=== PATIENT | female | born 1995 | race African-American/Black ===

== ENCOUNTER 2020-03-13 17:05 | Observation (INO) | payer MEDICAID ==
[~2020-03-13] VITALS: Ht 167.6 cm; Wt 111.6 kg
[2020-03-13 18:43] LABS: CLARITY URINE CLOUDY (CLEAR); COLOR URINE YELLOW (YELLOW); KETONES URINE 3+ (NEGATIVE); LEUKOCYTE ESTERASE URINE NEGATIVE (NEGATIVE); NITRITE URINE POSITIVE (NEGATIVE); OCCULT BLOOD URINE NEGATIVE (NEGATIVE); PH URINE 5.5 (4.5-8.0); PROTEIN URINE 2+ (NEGATIVE); SPECIFIC GRAVITY URINE 1.039 (1.005-1.030); UROBILINOGEN URINE 0.2 E.U./dL (0.2-1.0)
[2020-03-13 18:51] LABS: BASOPHILS % 0.7 % (0.0-2.0); CHLORIDE 106 mEq/L (98-107); EOSINOPHILS % 0.3 % (0.0-5.0); HEMATOCRIT. 36.3 % (36.0-48.0); LYMPHOCYTES % 17.2 % (20.0-50.0); MEAN CORPUSCULAR HEMOGLOBIN 24.8 pg (28.0-32.0); MEAN CORPUSCULAR VOLUME 75.3 fL (81.0-99.0); MEAN PLATELET VOLUME 9.7 fl (7.4-10.4); MONOCYTES % 6.5 % (2.0-8.0); NEUTROPHILS % 75.3 % (40.0-76.0); PLATELET 257 x1000/uL (130-400); RED BLOOD CELL COUNT 4.82 mill/uL (4.2-5.4); RED CELL DISTRIBUTION WIDTH 16.9 % (11.6-14.6)
[2020-03-13 19:26] LABS: D-DIMER 0.57 mg/L FEU (<0.50); INR 0.9; PARTIAL THROMBOPLASTIN TIME 25.9 sec (23.4-31.0)
[2020-03-13] MEDS ORDERED: LACTATED RINGERS 1,000 ML IV SCH (19:45)
[2020-03-13] MEDS ORDERED: CEFAZOLIN 2,000 MG in DEXT 5% WATER 100 ML IV SCH (19:45)
[2020-03-13] MEDS ORDERED: CEFAZOLIN 2,000 MG in SODIUM CHLORIDE 0.9% 100 ML IV SCH (19:45)
[2020-03-13] MEDS ORDERED: PRENATAL VITAMINS (21:09)
[2020-03-13] MEDS ORDERED: INSULIN (21:09)
[2020-03-13] MEDS ORDERED: FERROUS SULFATE (21:09)
[2020-03-26] MEDS ORDERED: IBUP-2030 PO (02:17)
== END 2020-03-13 21:20 | disposition home or self-care (01) ==
LOC: 8 EST A/PP 17:05 → 8 EST LDRP 17:41
PROVIDERS: ADMIT Obstetrics & Gynecology; ATTEND Obstetrics & Gynecology
DX: O13.3 Gestational [pregnancy-induced] hypertension without significant proteinuria, third trimester (principal); Z3A.36 36 weeks gestation of pregnancy
CPT/HCPCS: 36415; 59025; 76805; 76818; 80053; 81003; 84550; 85025; 85379; 85384; 85610; 85730; 96361; 96365; 99281; G0378; J0690; J7050; 96360; J7060